=== PATIENT | female | born 1970 | race Caucasian/White ===

== ENCOUNTER → 2023-07-24 | Day surgery (SDC) | payer BC, OTHER ==
[~2023-07-24] MED LIST: ATORVASTATIN CA20 MG PO; BUPIVACAINE HCL 0.5% INJ 30 ML VIAL INJ ONE; COQ-10100 MG PO; DEXAMETHASONE SOD PHOS INJ 4 MG/ML SDV ONE; DEXILANT30 MG PO; FENTANYL CITRATE/PF 100MCG/2 ML INJ ONE; GABAPENTIN300 MG PO; GLYCOPYRROLATE INJ 0.2 MG/ML VIAL ONE; HYDROCHLOROTHIA25 MG PO; KETOROLAC TROMETHAMINE 30 MG/ML VIAL ONE; LACTATED RINGER'S 1,000 ML ONE; LIDOCAINE HCL 2% LOCAL INJ 5 ML SDV VIAL INJ ONE; METFORMIN HCL500 MG PO; METOCLOPRAMIDE HCL 10 MG/2ML VIAL ONE; MIDAZOLAM HCL 2 MG/2 ML VIAL ONE; Morphine 10mg syringe 10 MG/ML INJ ONE; NEOSTIGMINE 1 MG/ML 10ML VIAL ONE; OMEGA-31000 MG PO; ONDANSETRON HCL INJ 2MG/ML 2ML 2 MG/ML VIAL ONE; PROPOFOL IV EMULSION 10 MG/ML 20 ML VIAL ONE; ROCURONIUM BROMIDE 10 MG/ML 5ML VIAL IV ONE; SEVOFLURANE INHAL SOLN 250 ML PEN BTL ONE; SUCCINYLCHOLINE CHLORIDE 20 MG/ML 10ML VIAL ONE; VITAMIN D325 MCG PO; VITAMIN D35000 UNI1 PO; VITAMIN PO; ZINC PO
[2023-07-24] MEDS: CEFAZOLIN SODIUM 2 GM ONE (06:33)
[2023-07-24 06:45] LABS: BASOPHILS # (AUTO) 0.1 (0.0-0.1); BASOPHILS % 0.8 % (0.0-1.0); EOSINOPHILS # (AUTO) 0.2 (0.0-0.4); EOSINOPHILS % 2.8 % (0.0-6.0); HEMATOCRIT 39.6 % (34.2-44.1); HEMOGLOBIN 13.4 g/dL (12.0-16.0); LYMPHOCYTES # (AUTO) 2.7 (1.0-3.2); LYMPHOCYTES % 37.3 % (18.0-39.1); MEAN CORPUSCULAR HEMOGLOBIN 32.4 pg (28-32); MEAN CORPUSCULAR HGB CONC 33.8 g/dL (31-35); MEAN CORPUSCULAR VOLUME 95.7 fL (81-99); MONOCYTES # (AUTO) 0.6 (0.2-0.8); MONOCYTES % 7.7 % (4.4-11.3); NEUTROPHILS # (AUTO) 3.6 (2.1-6.9); NEUTROPHILS % 50.6 % (38.7-80.0); PLATELET COUNT 248 x10e3/uL (140-360); RED BLOOD COUNT 4.14 x10e6/uL (3.6-5.1); RED CELL DISTRIBUTION WIDTH 12.1 % (11.7-14.4); WHITE BLOOD COUNT 7.18 x10e3/uL (4.8-10.8)
[2023-07-24 07:02] LABS: ANION GAP 14.6 mmol/L (8-16); CREATININE, SERUM 0.74 mg/dL (0.57-1.11); POTASSIUM 3.6 mmol/L (3.5-5.1)
[2023-07-24] MEDS: ONDANSETRON HCL INJ 2MG/ML 2ML 2 MG/ML VIAL ONE (10:43)
[2023-07-24] MEDS: HYDRALAZINE HCL 20 MG/ML VIAL ONE (11:10)
[2023-07-24] MEDS: PROMETHAZINE HCL (IM) 25 MG/ML VIAL IM ONE (11:26)
[2023-07-24 12:10] VITALS: BP 150/87; PULSE 75; RESP 17; O2SAT 97
== END | disposition home or self-care (01) ==
LOC: OR 05:41
PROVIDERS: ATTEND Podiatrist Foot Surgery
DX: M24.574 Contracture, right foot (principal); M77.31 Calcaneal spur, right foot; M66.371 Spontaneous rupture of flexor tendons, right ankle and foot; G47.33 Obstructive sleep apnea (adult) (pediatric); E11.9 Type 2 diabetes mellitus without complications; I10 Essential (primary) hypertension; E78.5 Hyperlipidemia, unspecified; Z79.84 Long term (current) use of oral hypoglycemic drugs; Z79.899 Other long term (current) drug therapy
CPT/HCPCS: 27654; 27687; 28119; 36415; 71046; 80048; 82948; 85025; 88304; 88311; 93005; C1713; J0330; J0360; J1885; J2001; J2250; J2270; J2405; J2550; J2704; J2710; J2765; J3010; J7121; Q4150; 76000; J1100